=== PATIENT | male | born 1995 | race Caucasian/White ===

== ENCOUNTER 2016-06-16 09:15 | Emergency (ER) | payer OTHER ==
[~2016-06-16] VITALS: Ht 172.7 cm; Wt 72.7 kg
[2016-06-16 12:14] VITALS: BP 129/72
== END 2016-06-16 12:17 | disposition home or self-care (01) ==
LOC: EMS 09:17
DX: S00.03XA Contusion of scalp, initial encounter (principal); E11.9 Type 2 diabetes mellitus without complications; X58.XXXA Exposure to other specified factors, initial encounter; Y93.89 Activity, other specified; Y92.89 Other specified places as the place of occurrence of the external cause; Y99.8 Other external cause status
CPT/HCPCS: 99281

== ENCOUNTER 2018-01-08 13:48 | Emergency (ER) | payer MEDICAID ==
[~2018-01-08] VITALS: Ht 167.6 cm; Wt 77.3 kg
[2018-01-08] MEDS ORDERED: METOCLOPRAMIDE HCL 5 MG/ML 2 ML VIAL IVP ONE (16:15)
[2018-01-08] MEDS ORDERED: DiphenhydrAMINE HCL 50 MG/ML VIAL IVP ONE (16:15)
[2018-01-08] MEDS ORDERED: SODIUM CHLORIDE 0.9% 1,000 ML IV ONE (16:15)
[2018-01-08] MEDS ORDERED: KETOROLAC TROMETHAMINE 30 MG/ML VIAL IVP ONE (16:15)
[2018-01-08 18:23] VITALS: BP 120/80
== END 2018-01-08 18:20 | disposition home or self-care (01) ==
LOC: EMS 13:48
DX: R51 Headache (principal); R11.0 Nausea; R21 Rash and other nonspecific skin eruption
CPT/HCPCS: 87430; 96374; 96375; 99284; J1200; J1885; J2765; J7030